=== PATIENT | female | born 1975 | race Caucasian/White ===

== ENCOUNTER 2022-01-07 16:40 | Emergency (ER) | payer MEDICAID ==
[~2022-01-07] VITALS: Ht 162.6 cm; Wt 96.2 kg
[2022-01-07 16:52] VITALS: BP 132/84
--- NOTE | 2022-01-07 17:06 | NUR ---
[facility]: RIGHT EYE 20/25, LEFT EYE 20/25, BOTH EYES 20/20
--- NOTE | 2022-01-07 17:31 | NUR ---
46 Y/O FEMALE C/O HIGHBLOOD PRESSURE X TODAY. PER PATIENT HER BP AT HOME WAS 154/104. AT TRIAGE WAS 132/84. DURING ASSESSMENT WAS 119/68. PMH: RIGHT KNEE SUGERY 11/23/21, PCOS,ASTHMA NKDA
--- NOTE | 2022-01-07 17:35 | NUR ---
DR. KHAN EVALUATING PATIENT AT BEDSIDE.
--- NOTE | 2022-01-07 17:52 | NUR ---
LAB AT BEDSIDE.
[2022-01-07 18:06] LABS: BASOPHILS % (AUTO) 0.7 % (0.0-2.0); EOSINOPHILS # (AUTO) 0.2 K/uL (0-0.4); EOSINOPHILS % (AUTO) 3.8 % (0.0-4.0); HEMATOCRIT 42.4 % (36-48); HEMOGLOBIN 14.2 g/dL (12.0-16.0); LYMPHOCYTES # (AUTO) 1.2 K/uL (2.5-16.5); LYMPHOCYTES % (AUTO) 25.2 % (20.5-51.1); MEAN CORPUSCULAR HEMOGLOBIN 33 pg (27-31); MEAN CORPUSCULAR HGB CONC 34 g/dL (33-37); MEAN CORPUSCULAR VOLUME 97.6 fL (80-94); MONOCYTES # (AUTO) 0.8 K/uL (0.8-1.0); MONOCYTES % (AUTO) 17.1 % (1.7-9.3); NEUTROPHILS # (AUTO) 2.5 K/uL (1.8-7.7); NEUTROPHILS % (AUTO) 53.2 % (42.2-75.2); PLATELET COUNT (AUTO) 329 K/uL (140-450); RED BLOOD CELL COUNT(AUTO) 4.34 MIL/uL (4.20-5.40); RED CELL DISTRIBUTION WIDTH 13.5 % (11.6-13.7); WHITE BLOOD COUNT (AUTO) 4.8 K/uL (4.8-10.8)
--- NOTE | 2022-01-07 18:09 | NUR ---
RADIOLOGY AT BEDSIDE
[2022-01-07 18:23] LABS: ALBUMIN 3.4 g/dL (3.4-5.0); ANION GAP 12.1 (8-16); CARBON DIOXIDE 24.6 mmol/L (21-32); CREATININE 0.8 mg/dL (0.6-1.3); POTASSIUM 3.7 mmol/L (3.5-5.1); TOTAL BILIRUBIN 0.3 mg/dL (0.0-1.0)
--- NOTE | 2022-01-07 19:23 | NUR ---
REPORT GIVEN TO JUAN DUPREE FOR TRANSFER OF CARE.
--- NOTE | 2022-01-07 19:39 | NUR ---
Patient taken to CT scan via gurney.
--- NOTE | 2022-01-07 23:14 | NUR ---
Provided water as request.
--- NOTE | 2022-01-07 23:51 | NUR ---
Dr. Toro at bedside to explain results and treatment plans.
[2022-01-07] MEDS ORDERED: DOXY-690 PO (23:55)
--- NOTE | 2022-01-08 00:17 | NUR ---
IV removed, catheter intact and site benign. Applied folded 4x4 gauze and tape to stop bleeding.
[2022-01-08 00:20] VITALS: BP 129/62
--- NOTE | 2022-01-08 00:20 | NUR ---
Patient discharged with v/s stable. Written and verbal after care instructions given and explained. Patient alert, oriented and verbalized understanding of instructions. Wheel Chair Assisted with to car. All questions addressed prior to discharge. ID band removed. Patient advised to follow up with PMD. Rx of Doxycycline given. Patient educated on indication of medication including possible reaction and side effects. Opportunity to ask questions provided and answered.
== END 2022-01-08 00:20 | disposition home or self-care (01) ==
LOC: MED 16:40
DX: R06.00 Dyspnea, unspecified (principal); R79.1 Abnormal coagulation profile; H53.8 Other visual disturbances; Z98.890 Other specified postprocedural states; Z79.2 Long term (current) use of antibiotics
CPT/HCPCS: 36415; 71045; 71275; 80053; 83880; 84484; 85025; 85379; 99285; Q0092; Q9967; 93005